=== PATIENT | female | born 1995 | race Caucasian/White ===

== ENCOUNTER 2017-08-22 08:21 | Emergency (ER) | payer SELFPAY ==
[~2017-08-22] VITALS: Ht 172.7 cm; Wt 72.5 kg
[~2017-08-22 08:21] MED LIST: MEDR150P
[2017-08-22 09:04] VITALS: BP 144/82; PULSE 116; RESP 16; TEMP 98.7; O2SAT 96
[2017-08-22] MEDS ORDERED: IBUPROFEN 600 MG TAB PO ONE (09:45)
[2017-08-22] MEDS ORDERED: DEXAMETHASONE SOD PHOS 20 MG/5 ML VIAL IM ONE (09:45)
[2017-08-22] MEDS ORDERED: ETON1IMP I-DERMAL (09:54)
--- NOTE | 2017-08-22 11:19 | PD ---
HPI Chief Complaint: ENT Complaint Time Seen by Provider: 09:33 Travel History International Travel<30 days: No Contact w/Intl Traveler<30days: No Traveled to known affect area: No History of Present Illness HPI Patient is a 22 year old female who comes in complaining of sore throat for the past 4 days. She says it has been getting worse and she has pain with swallowing. She says she has felt feverish, but has not taken her temperature. She denies cough or congestion. She has tried taking Tylenol and Ibuprofen with some relief of her symptoms. She denies any sick contacts. Severity is mild to moderate. PFSH Past Medical History ADHD: Yes Asthma: Yes Diminished Hearing: No Immunizations Current: Yes ?: Not LMP: AUGUST 2017 Social History Alcohol Use: No Tobacco Use: No Substance Use: No Allergies-Medications (Allergen,Severity, Reaction): Coded Allergies: No Known Allergies (Verified , 12/13/11) Reported Meds & Prescriptions Reported Meds & Active Scripts Active Penicillin V Potassium 500 Mg Tab 500 Mg PO Q6H 10 Days Reported Nexplanon Implant (Etonogestrel Implant) 68 Mg Imp 68 Mg I-DERMAL ONCE Review of Systems General / Constitutional: Positive: Fever, Chills HENT: Positive: Sore Throat, No: Headaches, Lightheadedness Cardiovascular: No: Chest Pain or Discomfort Respiratory: No: Shortness of Breath Musculoskeletal: No: Myalgias, Edema Skin: No Rash, No Change in Pigmentation Neurologic: No: Weakness, Dizziness Physical Exam Narrative GENERAL: Awake and alert, no acute distress. SKIN: Focused skin assessment warm/dry. No wounds or signs of infection. HEAD: Atraumatic. Normocephalic. EYES: Pupils equal and round. No scleral icterus. ENT: A laterally enlarged tonsils, exudates present on the right. Uvula is midline. Mucous membranes pink and moist. NECK: Trachea midline. No JVD. Mildly enlarged anterior cervical lymph nodes bilaterally. CARDIOVASCULAR: Regular rate and rhythm. No murmur appreciated. RESPIRATORY: No accessory muscle use. Clear to auscultation. Breath sounds equal bilaterally. MUSCULOSKELETAL: No obvious deformities. No clubbing. No cyanosis. No edema. NEUROLOGICAL: Awake and alert. No obvious cranial nerve deficits. Motor grossly within normal limits. Normal speech. Data Data Last Documented VS Vital Signs Date Time Temp Pulse Resp B/P (MAP) Pulse Ox O2 Delivery O2 Flow Rate FiO2 08/22/17 09:04 98.7 116 16 144/82 (102) 96 Orders Orders Ed Urine Pregnancytest Poc (08/22/17 09:43) Group A Rapid Strep Screen (08/22/17 09:43) Ibuprofen (Motrin) (08/22/17 09:45) Dexamethasone Inj (Decadron Inj) (08/22/17 09:45) Ed Discharge Order (08/22/17 11:29) MDM Medical Decision Making Medical Screen Exam Complete: Yes Emergency Medical Condition: Yes Differential Diagnosis Pharyngitis versus strep pharyngitis versus URI Narrative Course Patient is a 22-year-old female who comes in complaining of sore throat. Exam shows enlarged tonsils with exudates. Patient given ibuprofen and Decadron. Rapid strep screen performed, is positive. Patient will be discharged with prescription for penicillin. Advised to continue ibuprofen as needed for pain. Advised return anytime for any worsening symptoms. Diagnosis Primary Impression: Pharyngitis Qualified Codes: J02.0 - Streptococcal pharyngitis Patient Instructions: General Instructions, Strep Throat (ED) Additional Instructions: Take all of your antibiotic. Take ibuprofen as needed for pain. Drink plenty of fluids. Return to the ED as needed for any worsening symptoms. Scripts Penicillin V Potassium (Penicillin V Potassium) 500 Mg Tab 500 MG PO Q6H for Infection for 10 Days, #40 TAB 0 Refills Prov: Deanna Cross MD 08/22/17 Disposition: 01 DISCHARGE HOME Condition: Stable Deanna Cross MD August 22, 2017 11:19
[2017-08-22] MEDS ORDERED: PENI500T PO (11:28)
== END 2017-08-22 11:42 | disposition home or self-care (01) ==
LOC: NEPE 08:21
DX: J02.0 Streptococcal pharyngitis (principal); F90.9 Attention-deficit hyperactivity disorder, unspecified type; J45.909 Unspecified asthma, uncomplicated
CPT/HCPCS: 84703; 87880; 96372; 99283; J1100